=== PATIENT | female | born 2005 | race Caucasian/White ===

== ENCOUNTER 2024-04-11 11:04 | Inpatient (IN) ==
[2024-04-11] MEDS ORDERED: LIDOCAINE 1% LOCAL 20 ML VIAL INFIL PRN (11:48)
[2024-04-11] MEDS ORDERED: OXYTOCIN 30 UNITS/NSS 30 UNITS/500 ML BAG IV PRN (11:48)
--- NOTE | 2024-04-11 11:52 | History & Physical Report ---
Date of Service April 11, 2024 Assessment & Plan (1) Supervision of normal first : Plan: +rupture of membranes diagnosed on exam: positive nitrizine and positive ferning. Will admit to L&D. Labs, IV access. OK for ambulation and intermittent toco/EFM if Cat 1. Patient agreeable to pitocin augmentation if labor slows. At this time, she is thinking she'd like to avoid epidural, but might change her mind - ok for epidural if she desires. History of Present Illness Chief Complaint: ROM Primary Care Provider: NO PCP 18yo @ 39 08/17, came to L&D for eval for leaking fluid and decreased movement. On arrival to L&D, had started feeling good movement again. No bleeding. Not really sure if she's feeling contractions, but feels crampy. Allergies Allergy/AdvReac Type Severity Reaction Status Date / Time No Known Allergies Allergy Verified 04/08/24 13:54 Home Medications Medication Instructions Recorded Confirmed Type [id number] oil PO 10/14/23 04/08/24 History [ Gummy] Patient History Medical History Varicella vaccination Surgical History No history of previous surgery Family History (Updated 04/11/24 @ 11:27 by Yanira Marc RN) Grandmother (Maternal) Diabetes Sister Autism CHD (congenital heart disease) Father Hearing loss Aunt Hearing loss Denies family history of Ovarian cancer Breast cancer Colorectal cancer Social History (Updated 04/11/24 @ 11:38 by Yanira Marc, BELKIS) Smoking Status: Never smoker Do You Dip or Chew Tobacco: No; Hx Alcohol Use: No Hx Substance Use: No Preferred Language: Luxembourger Visual Impairment: No Limitations Hearing Ability: Normal Beliefs That Will Affect Care: None marital status: Single marital status details: susanede Vernonmegan Belgica (Nils)-(22) [phone] Current Living Situation: Parent and Significant Other Current Living Situation Comment: lives with fob- no pets current occupational status: unemployed 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 [employer] Feels Safe at Home: Yes Safety Concerns: Feels Safe At This Time Diet: regular Review of Systems All systems reviewed & are unremarkable except as noted in HPI & below Physical Exam Physical Exam: SVE 1.5/80/-2, cephalic by exam FHT Cat 1 Stephan Q 2-3 min Constitutional: WD/WN, vitals as above Respiratory: normal respiratory effort, lungs clear to auscultation no respiratory distress Cardiovascular: Rate/Rhythm: regular rate and regular rhythm Gastrointestinal (Abdomen): Inspection/Auscultation: abdomen normal to inspection Percussion/Palpation: abdomen soft; abdomen nontender Gravid. No s/s chorio or abruption. Skin: no rashes, warm and dry Psychiatric: A+Ox3, euthymic affect Results & Data Vital Signs (Past 12 Hours) Vital Signs Temp Pulse Resp BP 04/11/24 11:14 130 H 117/74 04/11/24 11:10 18 04/11/24 11:10 36.8 C 18 Coding Level of Care Code None Diagnoses Supervision of normal first Z34.00
[2024-04-11 12:19] LABS: Hematocrit (blood only) 33.4 % (37.0-47.0); Hemoglobin 10.9 g/dl (12.0-16.0); Mean Corpuscular Hemoglobin 27.4 pg (25.0-34.0); Mean Corpuscular Hgb Conc 32.6 g/dL (32.0-36.0); Mean Corpuscular Volume 83.9 fL (80.0-100.0); Platelet Count 121 K/uL (130-400); RDW Standard Deviation 40.1 fL (36.4-46.3); Red Blood Count 3.98 M/uL (4.20-5.40); White Blood Count 10.27 K/ul (4.8-10.8)
[2024-04-11] MEDS: LACTATED RINGER'S 1,000 ML IV SCH (18:55)
[2024-04-11] MEDS: OXYTOCIN 30 UNITS/NSS 30 UNITS/500 ML BAG IV PRN (18:57)
[2024-04-11] MEDS: fentANYL 2 MCG/ML BUPIVacaine 0.125%-NSS 100ML BAG ONE (21:25)
[2024-04-11] MEDS: BUPIVACAINE 0.25% PF 30 ML VIAL ONE (21:25)
[2024-04-11] MEDS: LIDOCAINE 2%/EPINEPHRINE 1:200,000 20 ML PF ONE (21:25)
[2024-04-11] MEDS: fentaNYL citrate PF 100 MCG/2 ML VIAL ONE (21:30)
--- NOTE | 2024-04-11 21:44 | Anesthesiology Consultation ---
Date of Service April 11, 2024 Assessment & Plan Chart Review Chart Review: Acceptable Risk for Labor Epidural Consults Requested none History Height/Weight Height: 5 ft 7 in Weight: 65.771 kg Allergies Allergy/AdvReac Type Severity Reaction Status Date / Time No Known Allergies Allergy Verified 04/08/24 13:54 Medications Home Medications Medication Instructions Recorded Confirmed Last Taken [id number] oil PO 10/14/23 04/08/24 04/11/24 10:30 [ Gummy] Active Medications Generic Name Dose Route Start Last Admin Trade Name Freq PRN Reason Stop Dose Admin Oxytocin 30 units in 500 mls @ 0.5 mls/hr 04/11/24 11:48 04/11/24 20:00 Pitocin 30 Units/Nss IV 04/13/24 11:47 0.3 units/hr .Q24H PRN 5 mls/hr Labor Induction/Augmentation Titration Protocol 0.03 UNITS/HR Lactated Ringer's 1,000 mls @ 80 mls/hr 04/11/24 18:45 04/11/24 21:05 Lr IV 04/12/24 18:44 50 mls/hr .[id number] SALONI Infusion Past Medical History Medical History Varicella vaccination Past Family History Family History (Updated 04/11/24 @ 11:27 by Yanira Marc RN) Grandmother (Maternal) Diabetes Sister Autism CHD (congenital heart disease) Father Hearing loss Aunt Hearing loss Denies family history of Ovarian cancer Breast cancer Colorectal cancer Past Surgical History Surgical History No history of previous surgery Social History Smoking Status: Never smoker Do You Dip or Chew Tobacco: No Hx Alcohol Use: No Hx Substance Use: No Physical Exam Vital Signs Last Vital Signs Temp 36.7 C 04/11/24 19:00 Pulse 89 04/11/24 21:40 Resp 20 04/11/24 19:00 BP 114/63 04/11/24 21:37 Pulse Ox 98 04/11/24 21:40 Testing Laboratory Results 04/11/24 11:56
[2024-04-11] MEDS ORDERED: LIDOCAINE 2% MPF LOCAL 5 ML VIAL EPI PRN (21:45)
[2024-04-11] MEDS ORDERED: fentaNYL citrate PF 100 MCG/2 ML VIAL EPI PRN (21:45)
[2024-04-11] MEDS ORDERED: NALBUPHINE HCL INJ 10 MG/ML AMP IV PRN (21:45)
[2024-04-11] MEDS ORDERED: ROPIVACAINE 0.5% PF 5 MG/ML 20 ML VIAL EPI PRN (21:45)
[2024-04-11] MEDS ORDERED: NALOXONE HCL 0.4 MG/1 ML VIAL/CARP IV PRN (21:45)
[2024-04-11] MEDS ORDERED: ePHEDrine sulfate 50 MG/ML AMP IV PRN (21:45)
[2024-04-11] MEDS ORDERED: BUPIVACAINE 0.25% PF 30 ML VIAL EPI PRN (21:45)
[2024-04-11] MEDS ORDERED: SODIUM CHLORIDE 0.9% PF INJ 10 ML VIAL EPI PRN (21:45)
[2024-04-11] MEDS ORDERED: fentANYL 2 MCG/ML BUPIVacaine 0.125%-NSS 100ML BAG EPI PRN (21:45)
[2024-04-11] MEDS ORDERED: NALOXONE HCL 1 MG in SODIUM CHLORIDE 0.9% 1,000 ML IV PRN (21:45)
[2024-04-11] MEDS ORDERED: diphenhydrAMINE 50 MG/ML VIAL IV PRN (21:45)
[2024-04-11] MEDS: SODIUM CHLORIDE 0.9% PF INJ 10 ML VIAL EPI STA (22:06)
[2024-04-11] MEDS: SODIUM CHLORIDE 0.9% PF INJ 10 ML VIAL ONE (22:06)
[2024-04-11] MEDS: BUPIVACAINE 0.25% PF 30 ML VIAL EPI STA (22:06)
[2024-04-11] MEDS: fentaNYL citrate PF 100 MCG/2 ML VIAL EPI STA (22:06)
[2024-04-11] MEDS: LIDOCAINE 2%/EPINEPHRINE 1:200,000 20 ML PF EPI STA (22:06)
--- NOTE | 2024-04-12 00:21 | Delivery Summary ---
Vaginal Delivery Summary Date of Service April 12, 2024 Vaginal Delivery Summary and 2nd Degree LAC Vaginal Delivery Summary: Pre-delivery diagnoses: 18yo @ 39 5/7, spontaneous labor Post-delivery diagnoses: same Procedure: spontaneous vaginal delivery Surgeon: Kisha Bass DO Complications: none Findings: Viable male . Apgars: 9/9 . Weight pending, please see nursery records Estimated QBL: 464cc Description of delivery: The patient progressed to complete with epidural anesthesia. She then began to push. She spontaneously vaginally delivered a viable from the cephalic presentation. The head delivered in SARATH position. The anterior shoulder delivered, followed by the posterior shoulder, followed by the body. The baby was placed on mother's abdomen and a spontaneous cry was heard. Delayed cord clamping was employed, and the cord was doubly clamped and cut. Cord blood was obtained. The placenta was delivered spontaneously intact with a 3-vessel cord. The uterus and vagina were swept of clots and debris. IV pitocin was given. The uterus became firm. The cervix, vagina, and perineum were inspected and 2nd degree perineal laceration noted and repaired with 3-0 Vicryl in standard fashion. There was also a small right vaginal laceration, repaired with 3-0 vicryl for hemostasis. Excellent hemostasis was observed. There was some redundant vaginal posterior/right vaginal wall tissue - unable to determine if this was just redundant tissue (suspect this) vs risk for vaginal hematoma formation, therefore salgado catheter was placed and one lap sponge rolled and placed into the vagina with string protruding for easy removal. Will plan to monitor this overnight and remove packing in the morning and perform AM labs. The mother and baby are recovering in stable and good condition in the room. Sponge, needle and instrument counts were correct x 2. Kisha Bass DO [facility] Vaginal Delivery Charge Vaginal Delivery Codes: 82397 global code for the antepartum, delivery, and post- Delivery Type Details: and 2nd Degree LAC
[2024-04-12] MEDS ORDERED: HYDROCORTISONE ACETATE 25 MG SUPP PR PRN (00:29)
[2024-04-12] MEDS ORDERED: OXYTOCIN 30 UNITS/NSS 30 UNITS/500 ML BAG IV PRN (00:29)
[2024-04-12] MEDS ORDERED: oxyCODONE/ACETAMINOPHEN 5mg/325mg TAB PO PRN (00:29)
[2024-04-12] MEDS: ePHEDrine sulfate 50 MG/ML AMP ONE (00:42)
[2024-04-12] MEDS: ACETAMINOPHEN 325 MG TAB PO PRN (00:47)
[2024-04-12] MEDS: DIPHTHER/TETAN/PERTUS Vaccine (Tdap, Adol/Adult) 0.5mL IM ONE (00:52)
[2024-04-12] MEDS: BENZOCAINE 20% SPRY 85 APPLN/85 GM CAN EXT PRN (01:01)
[2024-04-12] MEDS: IBUPROFEN 600 MG TAB PO PRN (01:01)
[2024-04-12 06:23] LABS: Hemoglobin 9.2 g/dl (12.0-16.0)
--- NOTE | 2024-04-12 08:04 | Anesthesia Procedure Note ---
Date of Service April 12, 2024 Anesthesia Post Epidural Note Vital Signs Vital Signs: Temp Pulse Resp BP Pulse Ox O2 Del Method 36.4 C L 98 H 16 115/72 97 Room Air 04/12/24 03:00 04/12/24 03:00 04/12/24 03:00 04/12/24 03:00 04/12/24 01:01 04/12/24 03:00 Pain Intensity Bilateral Lower Abdomen: Pain Intensity: 2 Episiotomy/Laceration: Pain Intensity: 3 Notes Mental Status: alert / awake / arousable Nausea / Vomiting: adequately controlled Pain: adequately controlled Airway Patency, RR, SpO2: stable & adequate BP & HR: stable & adequate Hydration State: stable & adequate Neuraxial Anesthesia: was administered and sensory block is resolving Anesthetic Complications: no major complications apparent and Pt Satisfied with anesthetic care Epidural: Removed without complications and With tip intact
[2024-04-12] MEDS: DOCUSATE SODIUM 100 MG CAP PO SCH (08:23)
[2024-04-12] MEDS: PRENATAL VITAMIN 1 TAB PO SCH (08:23)
--- NOTE | 2024-04-12 08:35 | Obstetrical Progress Note ---
Date of Service April 12, 2024 Assessment & Plan (1) Supervision of normal first : PPD#1 doing well. Vaginal packing removed, will monitor for 30 min and then plan to remove salgado. Continue routine care. Anticipate DC home tomorrow. Subjective Ambulation: ambulating normally Voiding: no voiding problems Diet Tolerance:: regular diet Lochia:: Moderate Review of Systems All systems reviewed & are unremarkable except as noted in HPI & below Physical Exam Constitutional WD/WN, vitals as above no acute distress Respiratory normal respiratory effort Cardiovascular Rate/Rhythm: regular rate and regular rhythm Gastrointestinal (Abdomen) Inspection/Auscultation: abdomen normal to inspection; abdomen not distended Percussion/Palpation: abdomen soft Genitourinary OB Exam Abdomen: + fundal height Fundus: + firm; not tender Results & Data Vital Signs (Past 12 Hours) Vital Signs Temp Pulse Pulse Resp BP BP Pulse Ox 04/12/24 03:00 36.4 C L 98 H 16 115/72 04/12/24 02:15 37.1 C 20 04/12/24 02:15 97 H 105/68 04/12/24 02:00 100 H 108/70 04/12/24 01:45 18 04/12/24 01:45 103 H 111/72 04/12/24 01:30 95 H 101/62 04/12/24 01:15 20 04/12/24 01:15 97 H 100/61 04/12/24 01:01 94 H 97 04/12/24 01:00 18 04/12/24 01:00 86 109/63 04/12/24 00:56 93 H 96 04/12/24 00:51 93 H 96 04/12/24 00:46 98 H 93 04/12/24 00:45 18 04/12/24 00:45 97 H 108/63 04/12/24 00:41 100 H 89 L 04/12/24 00:36 92 04/12/24 00:36 90 04/12/24 00:36 94 H 118/69 93 04/12/24 00:31 143 H 90 04/12/24 00:30 36.7 C 18 04/12/24 00:27 111 H 94 04/12/24 00:26 108 H 94 04/12/24 00:21 100 H 96 04/12/24 00:17 100 H 94 04/12/24 00:16 95 H 93 04/12/24 00:15 20 04/12/24 00:15 105 H 96/53 L 04/12/24 00:13 101 H 108/54 L 04/12/24 00:11 105 H 93 04/12/24 00:06 116 H 93 04/12/24 00:02 119 H 92 04/12/24 00:01 117 H 97 04/11/24 23:56 95 04/11/24 23:56 120 H 04/11/24 23:51 90 04/11/24 23:51 122 H 04/11/24 23:46 88 L 04/11/24 23:46 124 H 04/11/24 23:41 96 04/11/24 23:41 117 H 04/11/24 23:36 92 04/11/24 23:36 118 H 04/11/24 23:35 97 04/11/24 23:35 107 H 04/11/24 23:30 89 L 04/11/24 23:30 108 H 04/11/24 23:30 93 04/11/24 23:30 109 H 04/11/24 23:25 89 L 04/11/24 23:25 103 H 04/11/24 23:25 122/68 04/11/24 23:24 92 04/11/24 23:24 94 H 04/11/24 23:20 90 04/11/24 23:20 102 H 04/11/24 23:18 37.2 C 04/11/24 23:16 91 04/11/24 23:16 111 H 04/11/24 23:15 98 04/11/24 23:15 107 H 04/11/24 23:10 97 04/11/24 23:10 102 H 04/11/24 23:10 114/64 04/11/24 23:07 93 04/11/24 23:07 101 H 04/11/24 23:05 99 04/11/24 23:05 83 04/11/24 23:00 100 04/11/24 23:00 96 H 04/11/24 22:56 87 04/11/24 22:56 129/83 04/11/24 22:55 99 04/11/24 22:55 84 04/11/24 22:50 100 04/11/24 22:50 94 H 04/11/24 22:45 100 04/11/24 22:45 89 04/11/24 22:40 100 04/11/24 22:40 89 04/11/24 22:40 85 04/11/24 22:40 133/78 04/11/24 22:35 100 04/11/24 22:35 77 04/11/24 22:30 100 04/11/24 22:30 88 04/11/24 22:25 100 04/11/24 22:25 91 H 04/11/24 22:20 100 04/11/24 22:20 82 04/11/24 22:15 100 04/11/24 22:15 82 04/11/24 22:11 83 04/11/24 22:11 123/70 04/11/24 22:10 100 04/11/24 22:10 79 04/11/24 22:05 100 04/11/24 22:05 84 04/11/24 22:00 99 04/11/24 22:00 91 H 04/11/24 21:55 99 04/11/24 21:55 90 04/11/24 21:54 91 H 04/11/24 21:54 121/66 04/11/24 21:50 98 04/11/24 21:50 89 04/11/24 21:50 87 04/11/24 21:50 116/64 04/11/24 21:45 98 04/11/24 21:45 87 04/11/24 21:44 88 04/11/24 21:44 120/58 L 04/11/24 21:40 98 04/11/24 21:40 89 04/11/24 21:37 90 04/11/24 21:37 114/63 04/11/24 21:35 97 04/11/24 21:35 88 04/11/24 21:35 118/66 04/11/24 21:33 90 04/11/24 21:33 116/65 04/11/24 21:31 94 H 04/11/24 21:31 118/64 04/11/24 21:30 36.6 C 04/11/24 21:30 96 04/11/24 21:30 85 04/11/24 21:29 81 04/11/24 21:29 117/62 04/11/24 21:27 81 04/11/24 21:27 117/63 04/11/24 21:25 95 04/11/24 21:25 86 04/11/24 21:25 115/62 04/11/24 21:23 85 04/11/24 21:23 114/63 04/11/24 21:20 98 04/11/24 21:20 101 H 04/11/24 21:15 97 04/11/24 21:15 102 H 04/11/24 21:10 94 04/11/24 21:10 102 H 04/11/24 21:07 93 04/11/24 21:07 103 H 04/11/24 21:05 97 04/11/24 21:05 106 H 04/11/24 21:00 98 04/11/24 21:00 98 H 04/11/24 20:55 97 04/11/24 20:55 104 H 04/11/24 20:50 99 04/11/24 20:50 102 H 04/11/24 20:45 99 04/11/24 20:45 105 H 04/11/24 20:40 100 04/11/24 20:40 98 H O2 Del Method 04/12/24 03:00 Room Air 04/12/24 02:15 04/12/24 02:15 04/12/24 02:00 04/12/24 01:45 04/12/24 01:45 04/12/24 01:30 04/12/24 01:15 04/12/24 01:15 04/12/24 01:01 04/12/24 01:00 04/12/24 01:00 04/12/24 00:56 04/12/24 00:51 04/12/24 00:46 04/12/24 00:45 04/12/24 00:45 04/12/24 00:41 04/12/24 00:36 04/12/24 00:36 04/12/24 00:36 04/12/24 00:31 04/12/24 00:30 04/12/24 00:27 04/12/24 00:26 04/12/24 00:21 04/12/24 00:17 04/12/24 00:16 04/12/24 00:15 04/12/24 00:15 04/12/24 00:13 04/12/24 00:11 04/12/24 00:06 04/12/24 00:02 04/12/24 00:01 04/11/24 23:56 04/11/24 23:56 04/11/24 23:51 04/11/24 23:51 04/11/24 23:46 04/11/24 23:46 04/11/24 23:41 04/11/24 23:41 04/11/24 23:36 04/11/24 23:36 04/11/24 23:35 04/11/24 23:35 04/11/24 23:30 04/11/24 23:30 04/11/24 23:30 04/11/24 23:30 04/11/24 23:25 04/11/24 23:25 04/11/24 23:25 04/11/24 23:24 04/11/24 23:24 04/11/24 23:20 04/11/24 23:20 04/11/24 23:18 04/11/24 23:16 04/11/24 23:16 04/11/24 23:15 04/11/24 23:15 04/11/24 23:10 04/11/24 23:10 04/11/24 23:10 04/11/24 23:07 04/11/24 23:07 04/11/24 23:05 04/11/24 23:05 04/11/24 23:00 04/11/24 23:00 04/11/24 22:56 04/11/24 22:56 04/11/24 22:55 04/11/24 22:55 04/11/24 22:50 04/11/24 22:50 04/11/24 22:45 04/11/24 22:45 04/11/24 22:40 04/11/24 22:40 04/11/24 22:40 04/11/24 22:40 04/11/24 22:35 04/11/24 22:35 04/11/24 22:30 04/11/24 22:30 04/11/24 22:25 04/11/24 22:25 04/11/24 22:20 04/11/24 22:20 04/11/24 22:15 04/11/24 22:15 04/11/24 22:11 04/11/24 22:11 04/11/24 22:10 04/11/24 22:10 04/11/24 22:05 04/11/24 22:05 04/11/24 22:00 04/11/24 22:00 04/11/24 21:55 04/11/24 21:55 04/11/24 21:54 04/11/24 21:54 04/11/24 21:50 04/11/24 21:50 04/11/24 21:50 04/11/24 21:50 04/11/24 21:45 04/11/24 21:45 04/11/24 21:44 04/11/24 21:44 04/11/24 21:40 04/11/24 21:40 04/11/24 21:37 04/11/24 21:37 04/11/24 21:35 04/11/24 21:35 04/11/24 21:35 04/11/24 21:33 04/11/24 21:33 04/11/24 21:31 04/11/24 21:31 04/11/24 21:30 04/11/24 21:30 04/11/24 21:30 04/11/24 21:29 04/11/24 21:29 04/11/24 21:27 04/11/24 21:27 04/11/24 21:25 04/11/24 21:25 04/11/24 21:25 04/11/24 21:23 04/11/24 21:23 04/11/24 21:20 04/11/24 21:20 04/11/24 21:15 04/11/24 21:15 04/11/24 21:10 04/11/24 21:10 04/11/24 21:07 04/11/24 21:07 04/11/24 21:05 04/11/24 21:05 04/11/24 21:00 04/11/24 21:00 04/11/24 20:55 04/11/24 20:55 04/11/24 20:50 04/11/24 20:50 04/11/24 20:45 04/11/24 20:45 04/11/24 20:40 04/11/24 20:40
[2024-04-12 11:48] VITALS: RESP 16
--- NOTE | 2024-04-13 05:46 | Obstetrical Progress Note ---
Date of Service April 13, 2024 Assessment & Plan (1) Supervision of normal first : Plan: PPD#2 doing well. Continue routine care. Anticipate DC home today. Admission and Anticipated Discharge Date Admission Date: April 11, 2024 Supervising Physician Co-Signing Physician Notes Resident Physician Supervision Note: I interviewed and examined the patient. Discussed with Dr. Salvador and agree with findings and plan as documented in the note. Any exceptions or clarifications are listed here: PPD#2 doing well. DC instructions reviewed, followup in 6w PP. Documented By: Kisha Bass DO Subjective Pt is 18 yo post- day 2 s/p at 39w4d Ambulation:In and out of room Voiding:voiding normally Passing gas: yes BM: no Diet tolerance:regular diet Lochia:small bloody, no clots Feeding type: breast Current pain level: 3 /10 improved with tylenol or ibuprofen Resting comfortably this morning in NAD. Denies RUDOLPH, CP, SOB, N/V/D, LE pain/swelling. Review of Systems Review of Systems: As per HPI Physical Exam Constitutional: WD/WN, vitals as above Respiratory: normal respiratory effort, lungs clear to auscultation Gastrointestinal (Abdomen): normal bowel sounds, soft, nontender, no hepatosplenomegaly Uterine fundus firm and at level of umbilicus Neurologic: PERRL, EOMI, accommodation nl, no face palsy, no dysarthria Moving all 4 extremities on command Psychiatric: A+Ox3, euthymic affect Results & Data Vital Signs (Past 12 Hours) Vital Signs Temp Pulse Resp BP Pulse Ox O2 Del Method 04/12/24 22:52 36.6 C 87 16 107/69 97 Room Air 04/12/24 18:59 36.7 C 83 16 99/66 L 97 Room Air Resident Activity Tracking Resident Involvement: Resident Care Provided Care Provided: Adult Hospital Medicine
[2024-04-13 09:37] VITALS: BP 105/72; PULSE 88; TEMP 98.1; O2SAT 98
[2024-04-13] MEDS ORDERED: bisacodyL 5 MG TABEC PO SCH (20:00)
[2024-04-14] MEDS ORDERED: bisacodyL 10 MG SUPP PR PRN
== END 2024-04-13 15:45 | disposition home or self-care (01) | DRG 807 ==
LOC: OPB 11:04 → 4S1 11:06 → 4E2 04-12 03:05